=== PATIENT | female | born 1960 | race American Indian/Alaskan Native ===

== ENCOUNTER 2021-08-12 12:56 | Emergency (ER) | payer MEDICARE ==
[2021-08-12] MEDS ORDERED: ONDANSETRON 4 MG/2 ML INJ IV ONE (16:47)
[2021-08-12] MEDS ORDERED: KETOROLAC 30 MG/1 ML INJ IV ONE (16:47)
--- NOTE | 2021-08-12 17:04 | Emergency Department Report ---
HPI - General Chief Complaint: Extremity Problem,Nontraumatic Time Seen by Provider: 08/12/21 16:33 - HPI HPI: 61-year-old female with history of hypertension, DM2, and CHF on Lasix 20 mg daily presents complaining of 1 day of nausea/vomiting and increased lower extremity swelling. Patient states she also has a history of left lower extremity sciatica which has been present for a while and for which she has had surgery to remove herniated disc in the past. She says that over the past day her sciatica pain has worsened but the reason for her presentation today is because she has noticed increased swelling of her bilateral lower extremities which is somewhat painful. She has not missed any doses of her diuretic. She reports she has had approximately 4 episodes of nonbloody nonbilious vomiting and still feels nauseated. She reports her initial blood glucose has been in the 200s. She has not tried anything for her symptoms. There are no known aggravating or alleviating factors. She received the first dose of Covid vaccine approximately 10 days ago does not yet receive the second dose. She denies any associated fever/chills, headache, vision change, neck pain, chest pain, cough, shortness of breath, abdominal pain, dysuria, focal weakness, sensory changes, or any other complaints. ED Past Medical Hx - Past Medical History Previous Medical History?: Yes Hx Hypertension: Yes Hx Congestive Heart Failure: Yes Hx Diabetes: Yes Additional medical history: Sciatica - Surgical History Additional Surgical History: Back surgery to remove herniated disc ED Review of Systems ROS: Stated complaint: SWELLING TO HANDS AND FEET Other details as noted in HPI Comment: All other systems reviewed and negative Constitutional: denies: chills, fever Eyes: denies: eye pain, vision change ENT: denies: throat pain, congestion Respiratory: denies: cough, shortness of breath Cardiovascular: edema. denies: chest pain, palpitations Gastrointestinal: nausea, vomiting. denies: abdominal pain, diarrhea, constipation Genitourinary: denies: dysuria, frequency Musculoskeletal: back pain. denies: arthralgia Skin: denies: rash, lesions Neurological: denies: headache, weakness, numbness, paresthesias Hematological/Lymphatic: denies: easy bleeding Physical Exam - Physical Exam Vital Signs: Vital Signs 08/12/21 14:03 Temperature 98.9 F Pulse Rate 78 Respiratory 14 Rate Blood Pressure 183/96 [Left] O2 Sat by Pulse 100 Oximetry Physical Exam: GENERAL: Well developed and well nourished. No acute distress HEAD: Normocephalic. No obvious signs of trauma. ENT: Slightly dry mucous membranes. EYES: Extraocular movements are intact. Pupils are equal round and reactive to light bilaterally NECK: Supple. Full ROM is intact. Trachea is midline. LUNGS: Nonlabored breathing. Equal chest rise bilaterally. Clear to auscultation bilaterally. CARDIOVASCULAR: Regular rate and rhythm. No murmurs or rubs. VASCULAR: Cap refill < 2 seconds. 3+ pitting edema of the bilateral lower extremities. There is overlying xerosis ABDOMEN: Abdomen is soft and nondistended. There is no significant tenderness, guarding or rebound. SKIN: Skin is warm and dry NEURO: Patient is awake, alert, and oriented. Very slow globally but without focal deficits. 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 Normal motor and sensory exam throughout. Normal speech. MUSCULOSKELETAL: No obvious deformities. No significant tenderness. Normal ROM throughout. BACK/SPINE: No midline tenderness or step-offs of the C/T/L spine. No costovertebral angle tenderness. ED Course Vital Signs 08/12/21 14:03 Temperature 98.9 F Pulse Rate 78 Respiratory 14 Rate Blood Pressure 183/96 [Left] O2 Sat by Pulse 100 Oximetry ED Medical Decision Making - Lab Data Result diagrams: 08/12/21 16:51 08/12/21 16:51 - EKG Data -: EKG Interpreted by Id - EKG Data 08/12/21 17:05 Normal sinus rhythm. Left axis deviation. Left anterior fascicular block. First-degree AV block. Q waves noted in the anterior leads V1 through V3. There are no significant ST segment or T wave abnormalities. - Radiology Data Radiology results: report reviewed - Medical Decision Making 61-year-old female with history of CHF and diabetes presenting with 1 day of increased lower extremity swelling, nausea/vomiting, and worsening of her left lower extremity sciatica pain. On initial assessment she is afebrile and with normal vital signs other than elevated blood pressure. On physical examination she is noted to have slightly dry mucous membranes and 3+ pitting edema the bilateral lower extremities without any other notable findings. She has a nonfocal neurologic exam. There is no CVA tenderness. There is no abdominal tenderness. Lungs are clear to auscultation. Given the patient's age/gender/comorbidities we will perform broad work-up with a full set of labs, EKG, chest x-ray. We will obtain duplex ultrasound of the bilateral lower extremities to assess for evidence of DVT. We will give Zofran and Toradol and reassess. Chest x-ray reveals no acute abnormalities Labs have resulted and reveal no significant leukocytosis or anemia. Creatinine is within normal range and there are no significant electrolyte abnormalities. However, the patient is known to have elevated glucose of 460. Troponin is negative. BNP is within normal limits. Given that the patient presented with concern for increased lower extremity swelling we will give gentle fluid rehydration with 500 cc of normal saline. Will administer 7 units of IV insulin and recheck blood sugar. Urinalysis reveals no evidence of infection. On repeat assessment at 7:45 PM, the patient is sitting up in bed and moving much more quickly than earlier. She reports that she feels much better and has received the insulin. Repeat glucose obtained at this time was 350. We will give an additional 500 cc of IV fluid. I discussed with the patient the importance of managing her blood sugar and she expressed understanding. We are waiting on the results of her duplex ultrasound of the lower extremities but if negative we will plan to discharge her with instructions to follow-up with her primary care doctor within the next 1 to 2 days and to check her blood sugar and administer the appropriate amount of insulin. I also encouraged her to stay hydrated. The patient expressed understanding and agreement with this plan of care. Duplex ultrasound of the bilateral lower extremity shows no evidence of DVT. Critical Care Time: Yes Critical care time in (mins) excluding proc time.: 35 Critical care attestation.: If time is entered above; I have spent that time in minutes in the direct care of this critically ill patient, excluding procedure time. Critical care time was spent in the evaluation/assessment, work-up, and jewels gement of hyperglycemia requiring administration of IV insulin as well as frequent reassessment and we evaluation, close monitoring, and extensive discussion with the patient ED Disposition Clinical Impression: Dehydration, Sciatica, Hyperglycemia, Nausea, Hypertension Disposition: 01 HOME / SELF CARE / HOMELESS Is pt being admited?: No Condition: Stable Instructions: Hyperglycemia, Nausea and Vomiting, Adult, Dehydration, Adult, Hypertension (ED) Additional Instructions: Please follow your blood sugar closely and administer the appropriate amount of insulin. Return to the emergency department should you develop inability to tolerate food or drink by mouth or for any other new health concerns. Follow-up closely with your primary care doctor. Referrals: [facility] [Provider Group] - 3-5 Days
[2021-08-12 17:21] LABS: Basophils # (Auto) 0.1 K/mm3 (0.0-0.1); Basophils % (Auto) 1.1 % (0.0-1.8); Eosinophils # (Auto) 0.1 K/mm3 (0.0-0.4); Eosinophils % (Auto) 1.3 % (0.0-4.3); Hematocrit 43.5 % (30.3-42.9); Hemoglobin 13.7 gm/dl (10.1-14.3); Lymphocytes # (Auto) 1.6 K/mm3 (1.2-5.4); Lymphocytes % (Auto) 27.5 % (13.4-35.0); Mean Corpuscular HGB Conc 32 % (30-34); Mean Corpuscular Volume 92 fl (79-97); Monocytes # (Auto) 0.4 K/mm3 (0.0-0.8); Monocytes % (Auto) 6.5 % (0.0-7.3); Platelet Count 148 K/mm3 (140-440); Red Blood Count 4.72 M/mm3 (3.65-5.03); Red Cell Distribution Width 13.3 % (13.2-15.2)
[2021-08-12 17:46] LABS: Alanine Aminotransferase 16 units/L (7-56); Albumin 4.1 g/dL (3.9-5); Blood Urea Nitrogen 7 mg/dL (7-17); Calcium 9.2 mg/dL (8.4-10.2); Hemolysis Index 8
--- NOTE | 2021-08-12 17:59 | XRay Report ---
XR chest routine 2V INDICATION / CLINICAL INFORMATION: swelling. COMPARISON: None available. FINDINGS: SUPPORT DEVICES: None. HEART /PULMONARY VASCULATURE: No significant abnormality. LUNGS / PLEURA: No significant pulmonary or pleural abnormality. No pneumothorax. ADDITIONAL FINDINGS: No significant additional findings. IMPRESSION: 1. No acute findings. Signer Name: Valdez Mcduffie MD Signed: 08/12/2021 5:55 PM Workstation Name: [id number]
[2021-08-12 18:03] LABS: Bacteria,Urine 1+ /HPF (Negative); Bilirubin,Urine NEG (Negative); Blood,Urine NEG (Negative); Color,Urine Straw (Yellow); Mucus,Urine FEW /HPF; Protein,Urine <15 mg/dL mg/dL (Negative); Urobilinogen,Urine < 2.0 mg/dL (<2.0)
[2021-08-12 18:10] LABS: BUN/Creatinine Ratio 12; Bilirubin,Direct < 0.2 mg/dL (0-0.2)
[2021-08-12] MEDS ORDERED: SODIUM CHLORIDE 0.9% 500 ML 500 ML IV ONE ×2 (18:12→19:59)
[2021-08-12] MEDS ORDERED: INSULIN REGULAR, HUMAN 100 UNITS/1 ML IV ONE (18:13)
--- NOTE | 2021-08-12 20:39 | Vascular Lab Report ---
DUPLEX DOPPLER LOWER EXTREMITY VEINS, BILATERAL INDICATION / CLINICAL INFORMATION: swelling + pain. TECHNIQUE: Duplex doppler imaging was performed through the veins of both lower extremities using venous rosa nash and other maneuvers. COMPARISON: None available. FINDINGS: RIGHT COMMON FEMORAL VEIN: Negative. RIGHT FEMORAL VEIN: Negative. RIGHT POPLITEAL VEIN: Negative. RIGHT CALF VEINS: Negative. LEFT COMMON FEMORAL VEIN: Negative. LEFT FEMORAL VEIN: Negative. LEFT POPLITEAL VEIN: Negative. LEFT CALF VEINS: Negative. ADDITIONAL FINDINGS: None. IMPRESSION: 1. No sonographic evidence for DVT in either lower extremity. Signer Name: Gal Tom MD Signed: 08/12/2021 8:35 PM Workstation Name: [id number]
[2021-08-12 21:24] VITALS: BP 150/90
--- NOTE | 2021-08-13 08:50 | Electrocardiograph Report ---
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
== END 2021-08-12 21:23 | disposition home or self-care (01) ==
LOC: ED 12:56
DX: E86.0 Dehydration (principal); M54.30 Sciatica, unspecified side; R11.0 Nausea; I11.0 Hypertensive heart disease with heart failure; I50.9 Heart failure, unspecified; E11.65 Type 2 diabetes mellitus with hyperglycemia
CPT/HCPCS: 36415; 71046; 80048; 80076; 81001; 82962; 83690; 83735; 83880; 84484; 85025; 93005; 93010; 93970; 96374; 96375; 99284; J1885; J2405; J7040; 96361; Q9967; J1815

== ENCOUNTER 2021-08-14 21:04 | Emergency (ER) | payer MEDICARE ==
[2021-08-15] MEDS ORDERED: SODIUM CHLORIDE 0.9% 500 ML 500 ML IV ONE (02:26)
[2021-08-15] MEDS ORDERED: HYDROcodone/ACETAMINOPHEN 5-325 MG TAB PO ONE (02:26)
--- NOTE | 2021-08-15 03:07 | Cat Scan Report ---
. CT facial bones wo con INDICATION / CLINICAL INFORMATION: denal abscess. TECHNIQUE: Axial coronal and sagittal images All CT scans at this location are performed using CT dose reduction for ALARA by means of automated exposure control. COMPARISON: None available. FINDINGS: /Mild inflammatory stranding surrounding the anterior aspect of the mandible. Just anterior to the in cisors there may be a small soft tissue abscess measuring approximately 9 mm on axial image 23. No de finite bony destructive change of this time mandible condyles appear intact mildly prominent submandi bular nodes. Submandibular glands and parotid glands appear intact. IMPRESSION: 1. Diffuse cellulitis with inflammatory change soft tissue thickening in the anterior and left aspect of the face overlying the mandible. Small fluid collection just anterior to the incisors could repre sent small abscess within the soft tissues as well. No bony destructive change at this time. A majori ty of the soft tissue swelling is present anteriorly and along the left aspect of the face and jaw. Signer Name: Tyrone Bhandari MD Signed: 08/15/2021 3:03 AM Workstation Name: [id number]
[2021-08-15 03:38] LABS: Alanine Aminotransferase 24 units/L (7-56); Albumin 4.3 g/dL (3.9-5); BUN/Creatinine Ratio 12; Blood Urea Nitrogen 6 mg/dL (7-17); Calcium 9.2 mg/dL (8.4-10.2); Hemolysis Index 3
[2021-08-15 04:02] LABS: Basophils # (Auto) 0.1 K/mm3 (0.0-0.1); Basophils % (Auto) 0.6 % (0.0-1.8); Hematocrit 44.2 % (30.3-42.9); Hemoglobin 14.4 gm/dl (10.1-14.3); Lymphocytes # (Auto) 1.2 K/mm3 (1.2-5.4); Lymphocytes % (Auto) 13.2 % (13.4-35.0); Mean Corpuscular HGB Conc 33 % (30-34); Mean Corpuscular Volume 91 fl (79-97); Monocytes # (Auto) 0.7 K/mm3 (0.0-0.8); Monocytes % (Auto) 8.1 % (0.0-7.3); Platelet Count 162 K/mm3 (140-440); Red Blood Count 4.85 M/mm3 (3.65-5.03); Red Cell Distribution Width 13.3 % (13.2-15.2)
--- NOTE | 2021-08-15 04:31 | Emergency Department Report ---
ED General Adult HPI - General Chief complaint: Dental/Oral Stated complaint: TOOTH/STOMACH PAIN VOMITING Time Seen by Provider: 08/15/21 01:29 Source: patient Mode of arrival: Ambulatory Limitations: No Limitations - History of Present Illness Initial comments: Patient 61-year-old female who presents for dental abscess x1 week. This is a chronic and recurrent problem for this patient there is no fevers no chills no nausea no vomiting. Patient is is tolerating p.o. intake without symptoms. There is no throat or ear pain. Patient states moderate facial swelling to left lower jaw.. Patient states has been unable to see dentist. Severity scale (0 -10): 5 - Related Data Previous Rx's Medication Instructions Recorded Last Taken Type Acetaminophen/Codeine [Tylenol 1 tab PO Q6H #12 tab 08/15/21 Unknown Rx /Codeine # 3 tab] Chlorhexidine Mouthwash [Peridex] 15 ml MM BID #1 bottle 08/15/21 Unknown Rx Clindamycin [Clindamycin CAP] 300 mg PO Q6H #28 cap 08/15/21 Unknown Rx Allergies Allergy/AdvReac Type Severity Reaction Status Date / Time diphenhydramine AdvReac Anaphylaxis Verified 08/15/21 00:47 [From Benadryl] ED Review of Systems ROS: Stated complaint: TOOTH/STOMACH PAIN VOMITING Other details as noted in HPI Constitutional: no symptoms reported Eyes: denies: eye pain, eye discharge, vision change ENT: dental pain Respiratory: denies: cough, shortness of breath, wheezing Cardiovascular: denies: chest pain, palpitations Endocrine: no symptoms reported Gastrointestinal: denies: abdominal pain, nausea, diarrhea Genitourinary: as per HPI Musculoskeletal: denies: back pain, joint swelling, arthralgia Skin: denies: rash, lesions Neurological: denies: headache, weakness, paresthesias Psychiatric: denies: anxiety, depression Hematological/Lymphatic: denies: easy bleeding, easy bruising ED Past Medical Hx - Past Medical History Hx Hypertension: Yes Hx Congestive Heart Failure: Yes Hx Diabetes: Yes Additional medical history: Sciatica - Surgical History Additional Surgical History: Back surgery to remove herniated disc - Medications Home Medications: Home Medications Medication Instructions Recorded Confirmed Last Taken Type Acetaminophen/Codeine [Tylenol 1 tab PO Q6H #12 tab 08/15/21 Unknown Rx /Codeine # 3 tab] Chlorhexidine Mouthwash [Peridex] 15 ml MM BID #1 bottle 08/15/21 Unknown Rx Clindamycin [Clindamycin CAP] 300 mg PO Q6H #28 cap 08/15/21 Unknown Rx ED Physical Exam - General Limitations: No Limitations General appearance: alert, in no apparent distress - Head Head exam: Present: atraumatic, normocephalic - Eye Eye exam: Present: normal appearance, EOMI Pupils: Present: normal accommodation - ENT ENT exam: Present: mucous membranes moist, TM's normal bilaterally, normal external ear exam - Expanded ENT Exam Expanded Teeth exam: Present: dental tenderness # (Erythema #19 region no focal abscess noted moderate facial swelling airway is patent no stridor no wheezing no lesions no exudate), gingival enlargement - Neck Neck exam: Present: normal inspection - Respiratory Respiratory exam: Present: normal lung sounds bilaterally. Absent: respiratory distress - Cardiovascular Cardiovascular Exam: Present: regular rate, normal rhythm. Absent: systolic murmur, diastolic murmur, rubs, gallop - GI/Abdominal GI/Abdominal exam: Present: soft, normal bowel sounds - Extremities Exam Extremities exam: Present: normal inspection - Back Exam Back exam: Present: normal inspection - Neurological Exam Neurological exam: Present: alert, oriented X3 - Psychiatric Psychiatric exam: Present: normal affect, normal mood - Skin Skin exam: Present: warm, dry, intact, normal color. Absent: rash ED Course Vital Signs 08/15/21 08/15/21 00:46 03:27 Temperature 100.8 F H Pulse Rate 113 H Respiratory 19 16 Rate Blood Pressure 162/91 O2 Sat by Pulse 96 Oximetry ED Medical Decision Making - Lab Data Result diagrams: 08/15/21 02:57 08/15/21 02:57 - Radiology Data Radiology results: report reviewed, image reviewed CT facial bones wo con INDICATION / CLINICAL INFORMATION: denal abscess. TECHNIQUE: Axial coronal and sagittal images All CT scans at this location are performed using CT dose reduction for ALARA by means of automated exposure control. COMPARISON: None available. FINDINGS: /Mild inflammatory stranding surrounding the anterior aspect of the mandible. Just anterior to the incisors there may be a small soft tissue abscess measuring approximately 9 mm on axial image 23. No definite bony destructive change of this time mandible condyles appear intact mildly prominent submandibular nodes. Submandibular glands and parotid glands appear intact. IMPRESSION: 1. Diffuse cellulitis with inflammatory change soft tissue thickening in the anterior and left aspect of the face overlying the mandible. Small fluid collection just anterior to the incisors could represent small abscess within the soft tissues as well. No bony destructive change at this time. A majority of the soft tissue swelling is present anteriorly and along the left aspect of the face and jaw. Signer Name: Tyrone Garg MD Signed: 08/15/2021 3:03 AM Workstation Name: [id number] Transcribed By: LEONARDO Dictated By: MINERVA GARG MD Electronically Authenticated By: MINERVA GARG MD Signed Date/Time: 08/15/21302 DD/ 9 TD/TT: - Medical Decision Making Patient declines to discuss admission for facial cellulitis, symptoms are impr francis per patient. Pain is resolved. Plan DC to home with prescriptions, follow-up with dentist in [place]. Return to emergency department if symptoms worsen. Patient verbalized agreement and understanding of discharge plan. Patient DC'd home in stable condition at this time. Critical care attestation.: If time is entered above; I have spent that time in minutes in the direct care of this critically ill patient, excluding procedure time. ED Disposition Clinical Impression: Dental abscess, Facial cellulitis Disposition: 01 HOME / SELF CARE / HOMELESS Is pt being admited?: No Does the pt Need Aspirin: No Condition: Stable Instructions: Dental Abscess, [id number], Cellulitis, Adult, [id number] Additional Instructions: Follow-up with dentist as soon as possible. Turn to emergency if symptoms worsen. Prescriptions: Clindamycin [Clindamycin CAP] 300 mg PO Q6H #28 cap Chlorhexidine Mouthwash [Peridex] 15 ml MM BID #1 bottle Acetaminophen/Codeine [Tylenol /Codeine # 3 tab] 1 tab PO Q6H #12 tab Referrals: [facility] [Outside] - 3-[facility] Days [facility] - [facility]-5 Days Time of Disposition: 04:37
[2021-08-15 05:15] VITALS: BP 184/94
== END 2021-08-15 05:17 | disposition home or self-care (01) ==
LOC: ED 21:04
DX: K04.7 Periapical abscess without sinus (principal); L03.211 Cellulitis of face; I10 Essential (primary) hypertension; E11.8 Type 2 diabetes mellitus with unspecified complications; Z86.79 Personal history of other diseases of the circulatory system
CPT/HCPCS: 36415; 70486; 80053; 85025; 96365; 99284; J7040; J7502

== ENCOUNTER 2021-12-20 14:48 | Emergency (ER) | payer MEDICARE ==
[2021-12-20 15:50] VITALS: BP 157/81
== END 2021-12-20 20:45 | disposition left against medical advice (07) ==
LOC: ED 14:48
DX: N64.4 Mastodynia (principal); Z53.21 Procedure and treatment not carried out due to patient leaving prior to being seen by health care provider

== ENCOUNTER 2022-04-08 20:30 | Inpatient (IN) | payer MEDICARE ==
[2022-04-09] MEDS ORDERED: HYDROcodone/ACETAMINOPHEN 5-325 MG TAB PO ONE (04:22)
--- NOTE | 2022-04-09 05:03 | XRay Report ---
LEFT HIP, 2 VIEW INDICATION / CLINICAL INFORMATION: left hip pain s/p fall. COMPARISON: None available. FINDINGS: There is nondisplaced femoral neck fracture of the left hip. No additional fractures of the left keira pelvis are noted. IMPRESSION: Nondisplaced left femoral neck fracture. Signer Name: Mariah Mcgarry MD Signed: 04/09/2022 4:59 AM Workstation Name: [id number]
[2022-04-09] MEDS ORDERED: MORPHINE 4 MG/1 ML INJ IV PRN ×3 (05:24→11:44)
[2022-04-09] MEDS ORDERED: ONDANSETRON 4 MG/2 ML INJ IV PRN ×2 (05:24→05:35)
--- NOTE | 2022-04-09 05:27 | Emergency Department Report ---
ED General Adult HPI - General Chief complaint: Abdominal Pain Stated complaint: LEFT SIDE PAIN Source: patient, EMS Mode of arrival: Stretcher Limitations: No Limitations - History of Present Illness Initial comments: Is a 62-year-old female history of hypertension and diabetes type 2, who presents for left hip pain status post fall 2 days ago. Patient states she slipped and fell at home and called ambulance and was advised to wait 24 hours if symptoms not improved call ambulance to return to hospital. Patient did same patient arrived via ambulance tonight for left hip pain unable to bear weight. Pain is rated at 5/10. Pain is exacerbated by movement. There is no obvious deformity. Patient denies other complaint. Severity scale (0 -10): 8 - Related Data Previous Rx's Medication Instructions Recorded Last Taken Type Acetaminophen/Codeine [Tylenol 1 tab PO Q6H #12 tab 08/15/21 Unknown Rx /Codeine # 3 tab] Chlorhexidine Mouthwash [Peridex] 15 ml MM BID #1 bottle 08/15/21 Unknown Rx Clindamycin [Clindamycin CAP] 300 mg PO Q6H #28 cap 08/15/21 Unknown Rx Allergies Allergy/AdvReac Type Severity Reaction Status Date / Time diphenhydramine AdvReac Anaphylaxis Verified 08/15/21 00:47 [From Benadryl] ED Review of Systems ROS: Stated complaint: LEFT SIDE PAIN Other details as noted in HPI Constitutional: denies: chills, fever Eyes: denies: eye pain, eye discharge, vision change ENT: denies: ear pain, throat pain Respiratory: denies: cough, shortness of breath, wheezing Cardiovascular: denies: chest pain, palpitations Endocrine: no symptoms reported Gastrointestinal: denies: abdominal pain, nausea, diarrhea Genitourinary: denies: urgency, dysuria, discharge Musculoskeletal: other Skin: denies: rash, lesions Neurological: denies: headache, weakness, numbness, paresthesias Psychiatric: denies: anxiety, depression Hematological/Lymphatic: denies: easy bleeding, easy bruising ED Past Medical Hx - Past Medical History Hx Hypertension: Yes Hx Congestive Heart Failure: Yes Hx Diabetes: Yes Additional medical history: Sciatica - Surgical History Additional Surgical History: Back surgery to remove herniated disc - Medications Home Medications: Home Medications Medication Instructions Recorded Confirmed Last Taken Type Acetaminophen/Codeine [Tylenol 1 tab PO Q6H #12 tab 08/15/21 Unknown Rx /Codeine # 3 tab] Chlorhexidine Mouthwash [Peridex] 15 ml MM BID #1 bottle 08/15/21 Unknown Rx Clindamycin [Clindamycin CAP] 300 mg PO Q6H #28 cap 08/15/21 Unknown Rx ED Physical Exam - General Limitations: No Limitations General appearance: alert, in no apparent distress - Head Head exam: Present: normocephalic, normal inspection - Eye Eye exam: Present: normal appearance, PERRL, EOMI Pupils: Present: normal accommodation - ENT ENT exam: Present: mucous membranes moist - Neck Neck exam: Present: normal inspection, full ROM. Absent: tenderness - Respiratory Respiratory exam: Present: normal lung sounds bilaterally. Absent: respiratory distress, wheezes - Cardiovascular Cardiovascular Exam: Present: regular rate, normal rhythm, normal heart sounds. Absent: systolic murmur, diastolic murmur, rubs, gallop - GI/Abdominal GI/Abdominal exam: Present: soft, normal bowel sounds. Absent: distended, tenderness, guarding, rebound, rigid, bruit, hernia - Rectal Rectal exam: Present: deferred - Extremities Exam Extremities exam: Present: normal inspection, normal capillary refill - Expanded Lower Extremity Exam Left Hip exam: Present: tenderness, swelling. Absent: ecchymosis, deformity, cr epidus, dislocation, external rotation, internal rotation, shortening Upper Leg exam: Absent: tenderness, swelling Knee exam: Absent: tenderness, swelling Lower Leg exam: Absent: tenderness, swelling Ankle exam: Absent: tenderness, swelling Foot/Toe exam: Absent: tenderness, swelling Neuro vascular tendon exam: Absent: pulse deficit, sensory deficit Gait: Positive: unable to bear weight - Back Exam Back exam: Present: normal inspection, full ROM. Absent: paraspinal tenderness, vertebral tenderness - Neurological Exam Neurological exam: Present: alert, oriented X3, CN II-XII intact - Expanded Neurological Exam Expanded Patient oriented to: Present: person, place, time Speech: Present: fluid speech Cranial nerves: EOM's Intact: Normal Motor strength exam: RUE: 5, LUE: 5, RLE: 5, LLE: 4 DTR: ankle (R): 1+, ankle (L): 1+ Best Eye Response ([place]): (4) open spontaneously Best Motor Response ([place]): (6) obeys commands Best Verbal Response ([place]): (5) oriented [place] Total: 15 - Psychiatric Psychiatric exam: Present: normal affect, normal mood - Skin Skin exam: Present: warm, dry, intact, normal color. Absent: rash ED Course Vital Signs 04/08/22 21:00 Temperature 98 F Pulse Rate 68 Respiratory 16 Rate Blood Pressure 138/72 [Right] O2 Sat by Pulse 96 Oximetry ED Medical Decision Making - Lab Data Result diagrams: 04/09/22 05:35 04/09/22 05:35 - Radiology Data Radiology results: report reviewed, image reviewed LEFT HIP, 2 VIEW INDICATION / CLINICAL INFORMATION: left hip pain s/p fall. COMPARISON: None available. FINDINGS: There is nondisplaced femoral neck fracture of the left hip. No additional fractures of the left hemipelvis are noted. IMPRESSION: Nondisplaced left femoral neck fracture. Signer Name: Mariah Mcgarry MD Signed: 04/09/2022 4:59 AM Workstation Name: [id number] Transcribed By: Dictated By: Mariah Mcgarry MD Electronically Authenticated By: Mariah Mcgarry MD Signed Date/Time: 04/09/22458 DD/ 7 TD/TT: CHEST 1 VIEW INDICATION / CLINICAL INFORMATION: CHF. COMPARISON: 08/12/2021 FINDINGS: SUPPORT DEVICES: None. HEART / MEDIASTINUM: No significant abnormality. LUNGS / PLEURA: Mild pulmonary vascular congestion without overt interstitial pulmonary edema. Lung volumes are slightly low. No visible pleural effusion. No pneumothorax. ADDITIONAL FINDINGS: Mild chronic elevation of the right hemidiaphragm. IMPRESSION: 1. Pulmonary vascular congestion without overt interstitial pulmonary edema. Signer Name: Mariah Mcgarry MD Signed: 04/09/2022 5:52 AM Workstation Name: [id number] Transcribed By: Dictated By: Mariah Mcgarry MD Electronically Authenticated By: Mariah Mcgarry MD Signed Date/Time: 04/09/22 0552 DD/ 0 TD/TT: - Medical Decision Making Left hip x-ray demonstrates left femoral neck fracture, consulted orthopedics Dr. Mukherjee recommendation admit hospitalist diagnosis left femoral neck fracture orthopedics will see this a.m. for evaluation and possible ORIF. Discussed same with patient patient agrees with treatment plan, consulted hospitalist hospital list agrees with treatment plan patient care handoff at this time patient will be admitted to hospitalist diagnosis left femoral neck fracture Critical care attestation.: If time is entered above; I have spent that time in minutes in the direct care of this critically ill patient, excluding procedure time. ED Disposition Clinical Impression: Femoral neck fracture Qualifiers: Encounter type: initial encounter Fracture type: closed Laterality: left Qualified Code(s): S72.002A - Fracture of unspecified part of neck of left femur, initial encounter for closed fracture Disposition: ADMITTED INPATIENT Is pt being admited?: Yes Does the pt Need Aspirin: No Condition: Stable
[2022-04-09] MEDS ORDERED: SODIUM CHLORIDE 0.9% 1000 ML 1,000 ML IV SCH (05:30)
[2022-04-09] MEDS ORDERED: ACETAMINOPHEN 325 MG TAB PO PRN (05:35)
[2022-04-09] MEDS ORDERED: MORPHINE 2 MG/1 ML INJ IV PRN (05:35)
[2022-04-09] MEDS ORDERED: DEXTROSE 50% IN WATER (25GM) 50 ML SYRINGE IV PRN (05:35)
[2022-04-09] MEDS ORDERED: ALBUTEROL 2.5 MG/3 ML NEBU IH PRN (05:35)
[2022-04-09] MEDS ORDERED: LORazepam 2 MG/ML VIAL ONE (05:39)
--- NOTE | 2022-04-09 05:41 | History and Physical Report ---
History of Present Illness Date of examination: 04/09/22 Date of admission: 04/09/22 Chief complaint: Left hip pain History of present illness: 62-year-old female history of hypertension and diabetes type 2 was brought to the emergency room because of left hip pain status post fall 2 days ago. Patient states she slipped and fell at home and called ambulance and was advised to wait 24 hours if symptoms not improved call ambulance to return to hospital. Patient did same patient arrived via ambulance tonight for left hip pain unable to bear weight. Pain is rated at 5/10. Pain is exacerbated by movement. There is no obvious deformity. Patient denies other complaint. Left hip x-ray demonstrates left femoral neck fracture, consulted orthopedics Dr. Mukherjee recommendation admit to the hospital. Dr. Mukherjee will see the patient in the morning for possible ORIF Past History Past Medical History: diabetes, heart failure, hypertension, other (Sciatica) Past Surgical History: Other (Back surgery to remove herniated disc) Social history: no significant social history Family history: diabetes, hypertension Medications and Allergies Allergies Allergy/AdvReac Type Severity Reaction Status Date / Time diphenhydramine AdvReac Anaphylaxis Verified 08/15/21 00:47 [From Benadryl] Home Medications Medication Instructions Recorded Confirmed Last Taken Type Acetaminophen/Codeine [Tylenol 1 tab PO Q6H #12 tab 08/15/21 Unknown Rx /Codeine # 3 tab] Chlorhexidine Mouthwash [Peridex] 15 ml MM BID #1 bottle 08/15/21 Unknown Rx Clindamycin [Clindamycin CAP] 300 mg PO Q6H #28 cap 08/15/21 Unknown Rx Active Meds: Active Medications Sodium Chloride (Nacl 0.9% 1000 Ml) 1,000 mls @ 75 mls/hr IV DIRECT [place]ET[place] Morphine Sulfate (Morphine 4 Mg/1 Ml Inj) 4 mg IV Q6H PRN PRN Reason: Pain , Severe (7-10) Ondansetron HCl (Ondansetron 4 Mg/2 Ml Inj) 4 mg IV Q6H PRN PRN Reason: Nausea And Vomiting Review of Systems All systems: negative Constitutional: other (left hip pain status post fall) Exam - Constitutional Vitals: Temp Pulse Resp BP Pulse Ox 98 F 68 16 138/72 96 04/08/22 21:00 04/08/22 21:00 04/08/22 21:00 04/08/22 21:00 04/08/22 21:00 General appearance: Present: no acute distress, well-nourished - EENT Eyes: Present: PERRL ENT: hearing intact, clear oral mucosa - Neck Neck: Present: supple, normal ROM - Respiratory Respiratory effort: normal Respiratory: bilateral: CTA - Cardiovascular Heart Sounds: Present: S1 & S2. Absent: rub, click - Extremities Extremities: pulses symmetrical, No edema Extremity abnormal: other (left hip pain status post fall) Peripheral Pulses: within normal limits - Abdominal General gastrointestinal: Present: soft, non-tender, non-distended, normal bowel sounds Female genitourinary: Present: normal - Integumentary Integumentary: Present: clear, warm, dry - Musculoskeletal Musculoskeletal: gait normal, strength equal bilaterally - Psychiatric Psychiatric: appropriate mood/affect, intact judgment & insight - Neurologic Neurologic: CNII-XII intact, moves all extremities Assessment and Plan VTE prophylaxis?: Mechanical Plan of care discussed with patient/family: Yes - Patient Problems (1) Femoral neck fracture Current Visit: Yes Status: Acute Qualifiers: Encounter type: initial encounter Fracture type: closed Laterality: left Qualified Code(s): S72.002A - Fracture of unspecified part of neck of left femur, initial encounter for closed fracture Plan to address problem: Admit the patient to the medical floor. NPO. Normal saline at the rate of 100 cc/h. Morphine 2 mg IV every 4 hours as needed. Orthopedic evaluation for possible ORIF in the morning. Recheck CBC BMP in the morning (2) HTN (hypertension) Current Visit: Yes Status: Acute Plan to address problem: Hydralazine 10 mg IV every 6 hours as needed. We continue the home medication (3) CHF (congestive heart failure) Current Visit: Yes Status: Acute Plan to address problem: Is stable. We will monitor the patient closely. Daily weight. Maintain input output (4) Diabetes Current Visit: Yes Status: Acute Plan to address problem: Accu-Chek every 6 hours with moderate dose Humalog coverage. Diabetic education. Recheck BMP in the morning (5) Fall Current Visit: Yes Status: Acute Plan to address problem: Patient is on fall precaution. Will consult physical therapy for evaluation (6) DVT prophylaxis Current Visit: Yes Status: Acute Plan to address problem: SCD for DVT prophylaxis. Pepcid 20 mg IV every 12 hours for GI prophylaxis. Patient is a full code
--- NOTE | 2022-04-09 05:57 | XRay Report ---
CHEST 1 VIEW INDICATION / CLINICAL INFORMATION: CHF. COMPARISON: 08/12/2021 FINDINGS: SUPPORT DEVICES: None. HEART / MEDIASTINUM: No significant abnormality. LUNGS / PLEURA: Mild pulmonary vascular congestion without overt interstitial pulmonary edema. Lung v olumes are slightly low. No visible pleural effusion. No pneumothorax. ADDITIONAL FINDINGS: Mild chronic elevation of the right hemidiaphragm. IMPRESSION: 1. Pulmonary vascular congestion without overt interstitial pulmonary edema. Signer Name: Mariah Mcgarry MD Signed: 04/09/2022 5:52 AM Workstation Name: [id number]
[2022-04-09 06:01] LABS: Basophils % (Auto) 0.6 % (0.0-1.8); Eosinophils # (Auto) 0.1 K/mm3 (0.0-0.4); Eosinophils % (Auto) 2.7 % (0.0-4.3); Hematocrit 40.2 % (30.3-42.9); Hemoglobin 12.9 gm/dl (10.1-14.3); Lymphocytes # (Auto) 1.1 K/mm3 (1.2-5.4); Lymphocytes % (Auto) 21.4 % (13.4-35.0); Mean Corpuscular HGB Conc 32 % (30-34); Mean Corpuscular Volume 91 fl (79-97); Monocytes # (Auto) 0.4 K/mm3 (0.0-0.8); Monocytes % (Auto) 8.3 % (0.0-7.3); Platelet Count 127 K/mm3 (140-440); Red Blood Count 4.43 M/mm3 (3.65-5.03); Red Cell Distribution Width 14.2 % (13.2-15.2)
[2022-04-09 06:21] LABS: Alanine Aminotransferase 12 units/L (7-56); Blood Urea Nitrogen 12 mg/dL (7-17); Calcium 8.8 mg/dL (8.4-10.2); Hemolysis Index 9
[2022-04-09 06:23] LABS: BUN/Creatinine Ratio 17
[2022-04-09] MEDS: INSULIN LISPRO 100 UNIT/ML SUB-Q SCH ×3 (06:31→20:20)
[2022-04-09 06:33] LABS: INR 0.97 (0.87-1.13)
[2022-04-09 06:34] LABS: Partial Thromboplastin Time 24.9 Sec. (24.2-36.6)
[2022-04-09] MEDS ORDERED: LACTATED RINGERS 1,000 ML ONE (09:22)
[2022-04-09] MEDS ORDERED: ACETAMINOPHEN 325 MG TAB PO ONE (09:31)
[2022-04-09] MEDS ORDERED: MAGNESIUM OXIDE 400 MG TAB PO ONE (09:31)
--- NOTE | 2022-04-09 09:32 | Anesthesia Day of Surgery ---
Anesthesia Day of Surgery - Day of Surgery Patient Examined: Yes Patient H&P Reviewed: Yes Patient is NPO: Yes
[2022-04-09] MEDS ORDERED: ceFAZolin/Water 2 GM/20 ML 2 GM/20 ML SYRINGE IV ONE (09:33)
--- NOTE | 2022-04-09 09:41 | Anesthesia Consultation ---
Anesthesia Consult and Med Hx Date of service: 04/09/22 - Airway Anesthetic Teeth Evaluation: Edentulous ROM Head & Neck: Adequate Mental/Hyoid Distance: Adequate Mallampati Class: Class II Intubation Access Assessment: Good - Pre-Operative Health Status ASA Pre-Surgery Classification: ASA3 Proposed Anesthetic Plan: General - Pulmonary Hx Smoking: No Hx Sleep Apnea: No - Cardiovascular System Hx Hypertension: Yes (CHF) Hx Coronary Artery Disease: No (Pt reports negative stress test four months ago) - Gastrointestinal Hx Gastroesophageal Reflux Disease: Yes (Well controlled) - Endocrine Hx Non-Insulin Dependent Diabetes: Yes - Hematic Hx Sickle Cell Disease: No - Other Systems Hx Obesity: No
[2022-04-09] MEDS ORDERED: LACTATED RINGERS 1,000 ML IV ONE (09:45)
--- NOTE | 2022-04-09 09:50 | Consultation ---
History of Present Illness - HPI Consult date: 04/09/22 Consult reason: joint pain, fracture History of present illness: 62-year-old female who comes in complaining of left hip pain after a fall at home a couple days ago patient states he fell was able to place some weight onto the leg patient was advised to weight see if pain improved which it did not patient subsequently presented to our emergency department where x-rays taken revealed a impacted left femoral neck fracture no other complaints were noted Past History Past Medical History: diabetes, heart failure, hypertension, other (Sciatica) Past Surgical History: Other (Back surgery to remove herniated disc) Social history: no significant social history Family history: diabetes, hypertension Medications and Allergies Allergies Allergy/AdvReac Type Severity Reaction Status Date / Time diphenhydramine AdvReac Anaphylaxis Verified 08/15/21 00:47 [From Benadryl] Home Medications Medication Instructions Recorded Confirmed Last Taken Type Acetaminophen/Codeine [Tylenol 1 tab PO Q6H #12 tab 08/15/21 Unknown Rx /Codeine # 3 tab] Chlorhexidine Mouthwash [Peridex] 15 ml MM BID #1 bottle 08/15/21 Unknown Rx Clindamycin [Clindamycin CAP] 300 mg PO Q6H #28 cap 08/15/21 Unknown Rx Active Meds: Active Medications Acetaminophen (Acetaminophen 325 Mg Tab) 650 mg PO Q4H PRN PRN Reason: Pain MILD(1-3)/Fever >100.5/SUE Acetaminophen (Acetaminophen 325 Mg/10.15 Ml Oral Liqd Unit Dose) 650 mg PO PREOP NR Albuterol (Albuterol 2.5 Mg/3 Ml Nebu) 2.5 mg IH Q3HRT PRN PRN Reason: Shortness Of Breath Albuterol/Ipratropium (Ipratropium/Albuterol Sulfate 3 Ml Ampul.Neb) 1 ampul IH Q6HRT [place] Dextrose (Dextrose 50% In Water (25gm) 50 Ml Syringe) 0 ml IV Q30MIN PRN; Protocol PRN Reason: Hypoglycemia Famotidine (Famotidine 20 Mg/2 Ml Inj) 20 mg IV BID [place] Sodium Chloride (Nacl 0.9% 1000 Ml) 1,000 mls @ 75 mls/hr IV DIRECT [place] Insulin Human Lispro (Insulin Lispro 100 Unit/Ml) 0 unit SUB-Q Q6HR LUCRETIA; Protocol Last Admin: 04/09/22 06:31 Dose: 6 unit Midazolam HCl (Midazolam 2 Mg/2 Ml Inj) 2 mg IV PREOP NR Stop: 04/09/22 23:59 Morphine Sulfate (Morphine 2 Mg/1 Ml Inj) 2 mg IV Q4H PRN PRN Reason: Pain, Moderate (4-6) Morphine Sulfate (Morphine 4 Mg/1 Ml Inj) 4 mg IV Q4H PRN PRN Reason: Pain , Severe (7-10) Ondansetron HCl (Ondansetron 4 Mg/2 Ml Inj) 4 mg IV Q8H PRN PRN Reason: Nausea And Vomiting Sodium Chloride (Sodium Chloride 0.9% 10 Ml Flush Syringe) 10 ml IV BID [place] Sodium Chloride (Sodium Chloride 0.9% 10 Ml Flush Syringe) 10 ml IV PRN PRN PRN Reason: LINE FLUSH Physical Examination - Physical exam Narrative exam: Physical examination significant musculoskeletal findings relates to the left lower extremity here patient is noted to have tenderness in the left groin there was no obvious deformity or limb length discrepancy passive range of motion decreased remainder of her physical exam is unremarkable Plain x-rays from the emergency room were reviewed by me and show impacted mildly displaced left femoral neck fracture Eyes: PERRL ENT: Positive: clear oral mucosa Respiratory effort: normal Respiratory: bilateral: CTA Rhythm: regular Heart Sounds: Positive: S1 & S2 General gastrointestinal: Positive: soft, non-tender, non-distended, normal bowel sounds Integumentary: clear, warm, dry Neurologic: Positive: CNII-XII intact, moves all extremities, gait normal. Negative: focal deficits Assessment and Plan Assessment left femoral neck fracture impaction type Plan recommendation advised close reduction insertion of cannulated hip screws followed by physical therapy evaluation
[2022-04-09] MEDS ORDERED: dexAMETHasone 20 MG/5 ML VIAL ONE (09:54)
[2022-04-09] MEDS ORDERED: fentaNYL 100 MCG/2 ML INJ ONE (09:54)
[2022-04-09] MEDS ORDERED: LIDOCAINE MPF (2%) 20 MG/1 ML VIAL 5 ML ONE (09:54)
[2022-04-09] MEDS ORDERED: propofoL 200 MG/20 ML VIAL IV ONE (09:55)
[2022-04-09] MEDS ORDERED: KETAMINE/STERILE WATER 50 MG/ML SYRINGE ONE (09:55)
[2022-04-09] MEDS ORDERED: ONDANSETRON 4 MG/2 ML INJ ONE (09:57)
[2022-04-09] MEDS ORDERED: ROCURONIUM 50 MG/5 ML INJ IV ONE (09:57)
[2022-04-09] MEDS ORDERED: ceFAZolin/STERILE WATER 2 GM/20 ML SYRINGE IV NR (10:00)
[2022-04-09] MEDS ORDERED: ACETAMINOPHEN 325 MG/10.15 ML ORAL LIQD UNIT DOSE PO NR (10:00)
[2022-04-09] MEDS ORDERED: MIDAZOLAM 2 MG/2 ML INJ IV NR (10:00)
[2022-04-09] MEDS ORDERED: SODIUM CHLORIDE 0.9% IRR 1,500 ML BOTTLE IR ONE (11:31)
[2022-04-09] MEDS ORDERED: BUPIVACAINE/PF (0.5%) 5 MG/1 ML 30 ML VIAL INFILTRATI ONE (11:36)
[2022-04-09] MEDS ORDERED: GLYCOPYRROLATE 0.4 MG/2 ML INJ ONE (11:43)
[2022-04-09] MEDS ORDERED: NEOSTIGMINE 10MG/10 ML INJ MDV ONE (11:43)
[2022-04-09] MEDS ORDERED: ACETAMINOPHEN 650 MG RECT SUPP PR PRN (11:44)
--- NOTE | 2022-04-09 11:47 | Electrocardiograph Report ---
[facility] Test Date: 2022-04-09 Test Time: 06:00:11 Pat Name: SHAILESH ROLLINS Department: Room: [facility] Gender: F Machine Fastener: LEONARDO : 1960 Requested By: MARC CUADRA Order Number: [id number] Reading MD: Laureano Mar Measurements Intervals [place] Rate: 75 P: -1 [place]: 197 QRS: -43 QRSD: 80 T: 74 QT: 403 QTc: 452 Interpretive Statements Sinus rhythm Inferior infarct, old Anterior infarct, old Compared to ECG 08/12/2021 16:46:38 Myocardial infarct finding now present Left ventricular hypertrophy no longer present Electronically Signed On 04-09-2022 11:47:48 EDT by Laureano Mar
--- NOTE | 2022-04-09 11:50 | Procedure Note ---
Date of procedure: 04/09/22 Pre-op diagnosis: Impacted left femoral neck fracture Post-op diagnosis: same Procedure: Closed reduction insertion of cannulated screws left hip Procedure Patient was brought to the OR on the hospital bed following induction and intubation by anesthesia the patient was placed onto the [place] table supine next the right hip was prepped and draped in the usual sterile manner C-arm fluoroscopy was used to evaluate reduction,using a stab wound over the lateral border of the proximal femur and under centimeters the direction a threaded guidewire was inserted into the femoral neck and head next the targeting device was was inserted placed onto the initial guidewire this was then followed by insertion of 2 more guidewires and parallel fashion again utilizing C-arm visualization both AP and lateral views were obtained following this 3 partially-threaded 7.0 cannulated screws were inserted under C-arm direction AP and lateral views were obtained showing good placement of hardware next the wound was irrigated and was closed in a standard routine fashion. He was sent to postop anesthesia in stable condition Anesthesia: LAURA Surgeon: PETRA CENTENO Estimated blood loss: minimal Pathology: none Condition: stable Disposition: PACU
[2022-04-09] MEDS ORDERED: hydrALAZINE 20 MG/1 ML INJ ONE ×2 (12:14→12:44)
[2022-04-09] MEDS ORDERED: HYDROmorphone 0.5 MG/0.5 ML INJ ONE (13:14)
[2022-04-09] MEDS: HYDROmorphone 0.5 MG/0.5 ML INJ IV PRN ×3 (13:16→15:50)
--- NOTE | 2022-04-09 13:47 | XRay Report ---
INTRAOPERATIVE FLUOROSCOPY: LEFT HIP PINNING INDICATION / CLINICAL INFORMATION: LEFT HIP PINNING. TECHNIQUE: Intraoperative spot images were obtained during the procedure. FINDINGS / IMPRESSION: Left femoral neck fracture with 3 cannulated screw placement. Expected intraoperative appearance. Fluoroscopy Time: 1 minute, 35 seconds. Fluoroscopy Images: 4. Signer Name: Tim Hahn MD Signed: 04/09/2022 1:42 PM Workstation Name: [id number]
--- NOTE | 2022-04-09 14:08 | Post Anesthesia Evaluation ---
- Post Anesthesia Evaluation Patient Participated: Yes Airway Patent: Yes Stable Respiratory Function: Yes Nausea/Vomiting: No Temp > 96.8F: Yes Pain Manageable: Yes Adequeate Hydration: Yes Anesthesia Complications: No Block Receding Appropriately: Not Applicable Patient on Ventilator: No
[2022-04-09] MEDS ORDERED: hydrALAZINE 20 MG/1 ML INJ IV NR (14:30)
[2022-04-09] MEDS: KETOROLAC 30 MG/1 ML INJ IV PRN (16:05)
--- NOTE | 2022-04-09 19:52 | Event Note ---
Date: 04/09/22 Patient is reevaluated S/p left hip surgery for left hip fracture Postop patient doing well
[2022-04-09] MEDS: FAMOTIDINE 20 MG/2 ML INJ IV SCH ×2 (20:18→22:41)
[2022-04-10] MEDS: KETOROLAC 30 MG/1 ML INJ IV PRN ×2 (00:22→14:59)
[2022-04-10] MEDS: INSULIN LISPRO 100 UNIT/ML SUB-Q SCH ×5 (00:23→23:02)
[2022-04-10] MEDS: hydrALAZINE 20 MG/1 ML INJ IV PRN ×2 (06:39→19:15)
[2022-04-10 08:23] LABS: Hematocrit 40.7 % (30.3-42.9); Hemoglobin 13.2 gm/dl (10.1-14.3); Mean Corpuscular HGB Conc 33 % (30-34); Mean Corpuscular Volume 90 fl (79-97); Platelet Count 133 K/mm3 (140-440); Red Blood Count 4.54 M/mm3 (3.65-5.03); Red Cell Distribution Width 14.2 % (13.2-15.2)
[2022-04-10 08:40] LABS: Blood Urea Nitrogen 15 mg/dL (7-17); Calcium 8.5 mg/dL (8.4-10.2); Hemolysis Index 3
[2022-04-10] MEDS: IPRATROPIUM/ALBUTEROL SULFATE 3 ML AMPUL.NEB IH SCH ×5 (09:04→21:48)
[2022-04-10 09:08] LABS: BUN/Creatinine Ratio 21
[2022-04-10] MEDS: FAMOTIDINE 20 MG/2 ML INJ IV SCH (10:00)
[2022-04-10] MEDS: ENOXAPARIN 40 MG/0.4 ML INJ SUB-Q SCH (11:00)
[2022-04-10] MEDS: ONDANSETRON 4 MG/2 ML INJ IV PRN ×2 (11:00→19:29)
[2022-04-10] MEDS: FAMOTIDINE 20 MG TAB PO SCH ×2 (11:05→22:50)
--- NOTE | 2022-04-10 14:08 | Progress Note ---
Assessment and Plan continue PT and observation, hopefully dc soon Subjective Date of service: 04/10/22 Interval history: c/o left hip pain otherwise ok, PT started... Objective Vital signs: Vital Signs - 12hr 04/10/22 04/10/22 04/10/22 05:01 06:39 09:04 Temperature 98.6 F Pulse Rate 85 85 Pulse Rate [ 92 H Anterior Bilateral Throughout] Respiratory 18 Rate Respiratory 20 Rate [Anterior Bilateral Throughout] Blood Pressure 186/88 186/88 O2 Sat by Pulse 96 Oximetry 04/10/22 12:22 Temperature 98.7 F Pulse Rate 96 H Pulse Rate [ Anterior Bilateral Throughout] Respiratory 22 Rate Respiratory Rate [Anterior Bilateral Throughout] Blood Pressure 174/85 O2 Sat by Pulse 91 Oximetry Incision: clean and dry Weight bearing status: as tolerated - Labs CBC & BMP: 04/10/22 08:02 04/10/22 08:02 Labs: Abnormal lab results 04/09/22 04/09/22 04/10/22 Range/Units 16:43 23:01 05:11 Plt Count (140-440) K/mm3 Glucose (65-100) mg/dL POC Glucose 245 H 364 H 243 H (70-105) mg/dL 04/10/22 04/10/22 Range/Units 08:02 08:02 Plt Count 133 L (140-440) K/mm3 Glucose 249 H (65-100) mg/dL POC Glucose (70-105) mg/dL
[2022-04-10 21:22] LABS: Eosinophils % (Manual) 0 % (0.0-4.3); Platelet Estimate Consistent w Auto; Total Cells Counted 100
[2022-04-11] MEDS: IPRATROPIUM/ALBUTEROL SULFATE 3 ML AMPUL.NEB IH SCH ×2 (02:58→08:51)
[2022-04-11] MEDS: hydrALAZINE 20 MG/1 ML INJ IV PRN (03:17)
[2022-04-11] MEDS: KETOROLAC 30 MG/1 ML INJ IV PRN (03:48)
[2022-04-11] MEDS: METOCLOPRAMIDE 10 MG/2 ML INJ IV PRN ×2 (03:48→12:40)
--- NOTE | 2022-04-11 04:42 | XRay Report ---
ABDOMEN 2 VIEWS INDICATION / CLINICAL INFORMATION: persisistent n/v. COMPARISON: None available. FINDINGS: TUBES / LINES: None. BOWEL GAS PATTERN: No significant abnormality. FREE AIR / EXTRALUMINAL GAS: None seen. ADDITIONAL FINDINGS: Clips from prior cholecystectomy. Partially visualized left femoral neck pins. CHEST: Chronic elevation of right hemidiaphragm without acute process. IMPRESSION: 1. No acute findings. Signer Name: Tim Shell MD Signed: 04/11/2022 4:38 AM Workstation Name: [id number]
[2022-04-11] MEDS ORDERED: hydrALAZINE 20 MG/1 ML INJ IV PRN (06:30)
[2022-04-11] MEDS: INSULIN LISPRO 100 UNIT/ML SUB-Q SCH ×3 (06:41→17:34)
[2022-04-11] MEDS: ONDANSETRON 4 MG/2 ML INJ IV PRN (06:46)
--- NOTE | 2022-04-11 08:26 | Progress Note ---
Subjective Date of service: 04/10/22 Objective - Constitutional Vitals: Vital Signs - 12hr 04/10/22 04/10/22 04/11/22 21:16 22:19 02:55 Temperature 99.1 F Pulse Rate 98 H Respiratory 20 Rate Blood Pressure 170/73 O2 Sat by Pulse 96 94 96 Oximetry 04/11/22 04/11/22 05:56 06:43 Temperature 99.1 F Pulse Rate 118 H Respiratory 18 Rate Blood Pressure 184/83 184/83 O2 Sat by Pulse 97 Oximetry - Labs CBC & Chem 7: 04/10/22 08:02 04/10/22 08:02 Labs: Abnormal lab results 04/10/22 04/10/22 04/10/22 Range/Units 08:02 08:02 12:21 Plt Count 133 L (140-440) K/mm3 Seg Neuts % (Manual) 73.0 H (40.0-70.0) % Glucose 249 H (65-100) mg/dL POC Glucose 279 H (70-105) mg/dL 04/10/22 Range/Units 17:14 Plt Count (140-440) K/mm3 Seg Neuts % (Manual) (40.0-70.0) % Glucose (65-100) mg/dL POC Glucose 289 H (70-105) mg/dL
[2022-04-11] MEDS: FAMOTIDINE 20 MG TAB PO SCH (09:12)
[2022-04-11] MEDS: ENOXAPARIN 40 MG/0.4 ML INJ SUB-Q SCH (09:12)
--- NOTE | 2022-04-11 14:14 | Progress Note ---
Subjective Date of service: 04/11/22 Objective - Constitutional Vitals: Vital Signs - 12hr 04/11/22 04/11/22 04/11/22 02:55 05:56 06:43 Temperature 99.1 F Pulse Rate 118 H Respiratory 18 Rate Blood Pressure 184/83 184/83 O2 Sat by Pulse 96 97 Oximetry 04/11/22 04/11/22 04/11/22 08:53 08:57 12:09 Temperature Pulse Rate Respiratory Rate Blood Pressure O2 Sat by Pulse 96 96 98 Oximetry General appearance: Present: no acute distress, well-nourished - EENT Eyes: PERRL, EOM intact ENT: hearing intact, clear oral mucosa Ears: bilateral: normal - Neck Neck: supple, normal ROM - Respiratory Respiratory effort: normal Respiratory: bilateral: CTA - Breasts Breasts: normal - Cardiovascular Rhythm: regular Heart Sounds: Present: S1 & S2. Absent: gallop, rub Extremities: pulses intact, No edema, normal color, Full ROM - Gastrointestinal General gastrointestinal: Present: soft, non-tender, non-distended, normal bowel sounds - Genitourinary Female genitourinary: normal - Integumentary Integumentary: clear, warm, dry - Musculoskeletal Musculoskeletal: 1, strength equal bilaterally - Neurologic Neurologic: moves all extremities - Psychiatric Psychiatric: memory intact, appropriate mood/affect, intact judgment & insight - Labs CBC & Chem 7: 04/10/22 08:02 04/10/22 08:02 Labs: Abnormal lab results 04/10/22 04/10/22 04/10/22 Range/Units 08:02 12:21 17:14 Seg Neuts % (Manual) 73.0 H (40.0-70.0) % POC Glucose 279 H 289 H (70-105) mg/dL 04/11/22 04/11/22 Range/Units 06:01 11:06 Seg Neuts % (Manual) (40.0-70.0) % POC Glucose 287 H 238 H (70-105) mg/dL
[2022-04-11 18:51] VITALS: BP 179/87
== END 2022-04-11 17:30 | disposition left against medical advice (07) | DRG 480 ==
LOC: ED 20:30 → 3A 04-09 05:35
PROVIDERS: ADMIT Hospitalist; ATTEND Internal Medicine
PROC: 0QS734Z Reposition Left Upper Femur with Internal Fixation Device, Percutaneous Approach (ICD-10-PCS; principal; 2022-04-09)
DX: S72.002A Fracture of unspecified part of neck of left femur, initial encounter for closed fracture (principal); I50.41 Acute combined systolic (congestive) and diastolic (congestive) heart failure; I11.0 Hypertensive heart disease with heart failure; E11.9 Type 2 diabetes mellitus without complications; K21.9 Gastro-esophageal reflux disease without esophagitis; W18.39XA Other fall on same level, initial encounter; Y93.89 Activity, other specified; Y92.89 Other specified places as the place of occurrence of the external cause; Y99.8 Other external cause status; Z53.29 Procedure and treatment not carried out because of patient's decision for other reasons; Z88.8 Allergy status to other drugs, medicaments and biological substances; Z83.3 Family history of diabetes mellitus; Z82.49 Family history of ischemic heart disease and other diseases of the circulatory system
CPT/HCPCS: 36415; 71045; 74019; 80048; 80053; 82962; 85007; 85025; 85610; 85730; 86850; 86900; 86901; 93005; 94640; 94760; 99285; G0378; J1815; J3490; Q9967; C1713; J0360; J0690; J1100; J1170; J1650; J1885; J2060; J2250; J2270; J2405; J2704; J2710; J2765; J3010; J7120